=== PATIENT | female | born 2000 | race Caucasian/White ===

== ENCOUNTER 2025-02-04 22:39 | Emergency (ER) | payer MEDICAID ==
[~2025-02-04] VITALS: Ht 165.1 cm; Wt 84.0 kg
[2025-02-04 22:45] VITALS: O2SAT 98
[2025-02-04 23:05] LABS: BASOPHILS % 0.3 % (0.0-2.0); EOSINOPHILS % 0.7 % (0.0-5.0); HEMATOCRIT. 34.5 % (36.0-48.0); HEMOGLOBIN. 11.8 g/dL (12.0-16.0); LYMPHOCYTES % 21.8 % (20.0-50.0); MEAN CORPUSCULAR HEMOGLOBIN 29.4 pg (28.0-32.0); MEAN CORPUSCULAR HGB CONC 34.1 g/dL (31.0-37.0); MONOCYTES % 4.1 % (2.0-8.0); NEUTROPHILS % 73.1 % (40.0-76.0); PLATELET 198 x1000/uL (130-400); RED BLOOD CELL COUNT 4.01 mill/uL (4.2-5.4); RED CELL DISTRIBUTION WIDTH 14.6 % (11.6-14.6); WHITE BLOOD COUNT 9.4 x1000/uL (4.5-11.0)
[2025-02-04 23:14] LABS: CHLORIDE 106 mEq/L (98-107); POTASSIUM 3.4 mEq/L (3.5-5.1); SODIUM 140 mEq/L (136-145)
[2025-02-04 23:15] LABS: CALCIUM 8.9 mg/dL (8.7-10.4); CARBON DIOXIDE 24 mEq/L (21-32)
[2025-02-04 23:20] LABS: CREATININE 0.6 mg/dL (0.6-1.0); GLUCOSE 121 mg/dL (70-105); UREA NITROGEN BLOOD 6 mg/dL (9-23)
[2025-02-05 00:18] LABS: B-HCG QUANTITATIVE 12444 mIU/mL (<6)
[2025-02-05 00:47] LABS: CLARITY URINE CLEAR (CLEAR); COLOR URINE YELLOW (YELLOW); GLUCOSE URINE NEGATIVE (NEGATIVE); KETONES URINE 1+ (NEGATIVE); LEUKOCYTE ESTERASE URINE TRACE (NEGATIVE); NITRITE URINE NEGATIVE (NEGATIVE); OCCULT BLOOD URINE NEGATIVE (NEGATIVE); PH URINE 6.5 (4.5-8.0); PROTEIN URINE NEGATIVE (NEGATIVE)
[2025-02-05] MEDS: ACETAMINOPHEN 500MG TABLET PO ONE (00:53)
[2025-02-05 01:11] LABS: BACTERIA URINE TRACE; RBC URINE NONE SEEN /hpf (0-2); SQUAMOUS EPITHELIAL CELL URINE 3+ /lpf (RARE/1+)
[2025-02-05 01:12] LABS: AMORPHOUS SEDIMENT URINE 1+ /lpf
[2025-02-05 01:44] VITALS: BP 135/74; PULSE 102; RESP 18; TEMP 36.8; O2SAT 98
== END 2025-02-05 01:47 | disposition home or self-care (01) ==
LOC: ER 22:39
DX: O20.0 Threatened abortion (principal); Z3A.18 18 weeks gestation of pregnancy
CPT/HCPCS: 36415; 76805; 80048; 81003; 84702; 85025; 86850; 86900; 99284